=== PATIENT | female | born 1935 | race American Indian/Alaskan Native ===

== ENCOUNTER 2019-02-12 06:35 | Day surgery (SDC) | payer MEDICARE ==
[2019-02-12] MEDS ORDERED: ECOTRIN PO NR (07:02)
[2019-02-12] MEDS: NACL 0.9% 500 ML 500 ML IV SCH ×2 (07:37→09:40)
[2019-02-12 07:41] LABS: Hemoglobin 10.6 gm/dl (10.1-14.3); Mean Corpuscular HGB Conc 33 % (30-34); Mean Corpuscular Volume 93 fl (79-97); Platelet Count 176 K/mm3 (140-440); Red Blood Count 3.43 M/mm3 (3.65-5.03); Red Cell Distribution Width 14.5 % (13.2-15.2)
[2019-02-12 07:51] LABS: INR 1.07 (0.87-1.13)
[2019-02-12 07:52] LABS: Partial Thromboplastin Time 25.3 Sec. (24.2-36.6)
[2019-02-12 08:00] LABS: Calcium 9.4 mg/dL (8.4-10.2)
[2019-02-12 09:12] LABS: Band Neutrophils # (Manual) 0.1 K/mm3; Basophils % (Manual) 0 % (0.0-1.8); Platelet Estimate Consistent w Auto; RBC Morphology Normal; Total Cells Counted 100
[2019-02-12] MEDS ORDERED: HEPARIN 10,000 UNITS/10 ML ONE (09:13)
[2019-02-12] MEDS ORDERED: HEPARIN/NS 5000 UNIT/500ML(CATH LAB) 1,000 ML IR ONE (09:13)
[2019-02-12] MEDS ORDERED: NITROGLYCERIN SYRINGE 0 ML ONE (09:14)
[2019-02-12] MEDS ORDERED: CALAN ONE (09:14)
[2019-02-12] MEDS: XYLOCAINE 2% INFILTRATI ONE ×2 (09:43→09:53)
[2019-02-12] MEDS: VERSED ONE ×2 (09:43→09:53)
[2019-02-12] MEDS: SUBLIMAZE ONE ×2 (09:43→09:53)
--- NOTE | 2019-02-12 10:18 | Discharge Summary ---
Short Stay Discharge Plan Activity: advance as tolerated Weight Bearing Status: Partial Weight Bearing Diet: low fat, low cholesterol, low salt Wound: keep clean and dry Special Instructions: no heavy lifting (3 days) Follow up with: VÍCTOR FITZGERALD PA [Primary Care Provider] - 7 Days ALDAIR VICTOR MD [Staff Physician] - 7 Days
--- NOTE | 2019-02-12 10:58 | Cardiac Catherization Report ---
REASON FOR PROCEDURE: Dilated cardiomyopathy, abnormal thallium stress test. PROCEDURES: 1. Left heart catheterization. 2. Selective left and right coronary angiography. 3. Sedation time start 0949, end 1001. On commencement of the procedure, we did note a borderline mild renal insufficiency with a creatinine of 1.5. The patient was duly informed of the risks of contrast nephropathy and consented to proceed. She was prepped and draped in a sterile fashion after informed consent. Right femoral artery was entered using Seldinger technique followed by placement of a 6-Grenadian sheath. Selective left and right coronary angiography was performed using #4 left Ch[place] and a #4 right Chalo. The catheters were then removed, sheath removed, and hemostasis achieved using an Angio-Seal device. The patient was returned to the post procedure unit in stable condition. There were no complications. Total contrast used for the procedure was less than 40 mL. FINDINGS: HEMODYNAMICS: Ascending aortic pressure was 159/64. CORONARY ANGIOGRAPHY: There was diffuse moderate to severe coronary calcification. The left main coronary artery was short, free of significant disease. The left anterior descending artery contained a segment of severe calcification is in its mid portion. There is severe calcification associated with mild luminal stenosis, less than 10-20%. The vessel was otherwise widely patent. The diagonal branches were also free of significant disease. Circumflex artery and its obtuse marginal branches contained mild irregularities. The right coronary artery was dominant. This vessel also contained diffuse calcification in its proximal and mid segments associated with mild irregularities, no significant obstructive lesions. CONCLUSION: 1. Severe coronary calcification as described above. 2. No significant obstructive coronary lesions. 3. Total contrast less than 40 mL. RECOMMENDATION: Aggressive risk factor modification, medical therapy, previous echocardiography has documented a nonischemic cardiomyopathy. [facility]# [id number] CA/NTS
[2019-02-12] MEDS ORDERED: NACL 0.9% 1000 ML 1,000 ML IV SCH (11:00)
[2019-02-12 17:02] VITALS: BP 127/61
== END 2019-02-12 16:30 | disposition home or self-care (01) ==
LOC: CATHLABREC 06:35
PROVIDERS: ATTEND Internal Medicine Cardiovascular Disease
DX: I25.10 Atherosclerotic heart disease of native coronary artery without angina pectoris (principal); I42.0 Dilated cardiomyopathy; I11.0 Hypertensive heart disease with heart failure; I50.20 Unspecified systolic (congestive) heart failure; H40.9 Unspecified glaucoma; K21.9 Gastro-esophageal reflux disease without esophagitis; M19.90 Unspecified osteoarthritis, unspecified site; Z79.899 Other long term (current) drug therapy; Z79.82 Long term (current) use of aspirin; Z88.2 Allergy status to sulfonamides; Z87.891 Personal history of nicotine dependence; Z98.890 Other specified postprocedural states; Z98.41 Cataract extraction status, right eye; Z90.49 Acquired absence of other specified parts of digestive tract; Z90.13 Acquired absence of bilateral breasts and nipples; Z85.3 Personal history of malignant neoplasm of breast
CPT/HCPCS: 36415; 80048; 85007; 85025; 85610; 85730; 93005; 93010; 93454; C1760; J1644; J2250; J3010; J7030; J7040; 93458; Q9967